=== PATIENT | female | born 1995 | race Hispanic/Latino ===

== ENCOUNTER 2020-04-20 12:44 | Emergency (ER) | payer BC ==
[~2020-04-20] VITALS: Ht 165.1 cm; Wt 97.5 kg
--- NOTE | 2020-04-20 12:52 | NUR ---
ARRIVAL PT ARRIVED TO ED WITH C/O EPIGASTRIC PAIN THAT RADIATES TO BACK X2 DAYS. BEDSIDE MONITORS APPLIED. LAST BM TODAY AND OF NORMAL CONSISTENCY. BED IN LOW LOCKED POSITION. FATHER AT BEDSIDE.
[2020-04-20 13:05] VITALS: BP 157/88
[2020-04-20] MEDS ORDERED: PHENERGAN IV STA (13:24)
[2020-04-20] MEDS ORDERED: PROTONIX IV IV STA (13:24)
[2020-04-20] MEDS ORDERED: TORADOL IV STA (13:24)
--- NOTE | 2020-04-20 13:27 | ER.PDOC ---
General Chief Complaint: Abdomen Pain Stated Complaint: LOWER ABD PAIN Time seen by MD: 13:20 Source: patient, family Exam Limitations: no limitations History of Present Illness Initial Comments Patient c/o epigastric abdominal pain radiating through to her back, onset last night, with n/v. Bowel habits are unchanged/normal. No report of fever. Timing/Duration: 24 hours, constant Severity/Quality: moderate, severe Radiation: epigastric, back Associated Symptoms: nausea/vomiting Exacerbated by: nothing Relieved By: nothing Allergies: Coded Allergies: No Known Allergies (Unverified , 04/20/20) Vital Signs First Vital Signs Date Time Temp Pulse Resp B/P (MAP) Pulse Ox O2 Delivery O2 Flow Rate FiO2 04/20/20 13:05 98.2 76 16 04/20/20 13:05 157/88 (111) 98 Room Air Last Vital Signs Date Time Temp Pulse Resp B/P (MAP) Pulse Ox O2 Delivery O2 Flow Rate FiO2 04/20/20 13:05 98.2 76 16 98 04/20/20 13:05 157/88 (111) Room Air Past Medical History Medical History: no pertinent history Surgical History: no surgical history Family History Significant Family History: no pertinent family hx Social History Smoking: non-smoker Alcohol Use: occassionally Drug Use: none Constitutional: denies no symptoms reported, denies see HPI, denies chills, denies diaphoresis, denies fever, denies malaise, denies weakness, denies other EENTM: denies no symptoms reported, denies see HPI, denies eye pain, denies blurred vision, denies tearing, denies double vision, denies ear pain, denies ear discharge, denies nose pain, denies nose congestion, denies throat pain, denies throat swelling, denies mouth pain, denies mouth swelling, denies other Respiratory: denies no symptoms reported, denies see HPI, denies cough, denies orthopnea, denies shortness of breath, denies SOB with exertion, denies SOB at rest, denies stridor, denies wheezing, denies other Cardiovascular: denies no symptoms reported, denies see HPI, denies chest pain, denies edema, denies irregular heart rate, denies lightheadedness, denies palpitations, denies syncope, denies other Gastrointestinal: see HPI, abdominal pain, nausea, vomiting Genitourinary: denies no symptoms reported, denies see HPI, denies burning, denies dysuria, denies discharge, denies frequency, denies flank pain, denies hematuria, denies incontinence, denies pain, denies urgency, denies other Musculoskeletal: denies no symptoms reported, denies see HPI, denies back pain, denies gout, denies joint pain, denies joint swelling, denies muscle pain, denies muscle stiffness, denies neck pain, denies other Skin: denies no symptoms reported, denies see HPI, denies change in color, denies change in hair/nails, denies dryness, denies lesions, denies lumps, de nies rash, denies other All Other Systems: Reviewed and Negative Physical Exam General Appearance: No Apparent Distress, Obese HEENT: PERRL/EOMI Neck: Non-Tender, Full Range of Motion, Supple, Normal Inspection Respiratory: lungs clear, normal breath sounds, no respiratory distress, no accessory muscle use Cardiovascular: Regular Rate, Rhythm, No Murmur Gastrointestinal: Normal Bowel Sounds, No Pulsatile Mass, Soft, Tenderness (epigastric region without rebound) Extremities: Non-Tender, Normal Inspection, No Pedal Edema, No Calf Tenderness Neurologic/Psychiatric: Alert, Normal Mood/Affect, Oriented x 3 Skin: Normal Color, Warm/Dry Results/Orders Results/Orders Orders - CHERYL KAPLAN DO Cbc With Auto Diff (04/20/20 13:24) Comprehensive Metabolic Panel (04/20/20 13:24) Amylase (04/20/20 13:24) Lipase (04/20/20 13:24) Helicobacter Pylori (04/20/20 13:24) PT (04/20/20 13:24) Ct Abd/Pel With Iv Contrast (04/20/20 13:24) Partial Thromboplastin Time. (04/20/20 13:24) Hcg Qualitative Serum (04/20/20 13:24) Urinalysis (04/20/20 13:24) Saline Lock (04/20/20 13:24) Pantoprazole Sodium (Protonix Iv) (04/20/20 13:24) Promethazine Hcl (Phenergan) (04/20/20 13:24) Ketorolac Tromethamine (Toradol) (04/20/20 13:24) Vital Signs Date Time Temp Pulse Resp B/P (MAP) Pulse Ox O2 Delivery O2 Flow Rate FiO2 04/20/20 13:05 98.2 76 16 98 04/20/20 13:05 98.2 76 16 157/88 (111) 98 Room Air 04/20/20 13:05 98.2 76 16 Administered Medications Medications (Trade) Dose Ordered Sig/Doroteo Route PRN Reason Start Time Stop Time Status Last Admin Dose Admin Ketorolac Tromethamine (Toradol) 30 mg STAT STAT IV 04/20/20 13:24 04/20/20 13:25 UNV 04/20/20 13:41 30 MG Pantoprazole Sodium (Protonix Iv) 40 mg STAT STAT IV 04/20/20 13:24 04/20/20 13:25 UNV 04/20/20 13:41 40 MG Promethazine HCl (Phenergan) 25 mg STAT STAT IV 04/20/20 13:24 04/20/20 13:25 UNV 04/20/20 13:41 25 MG Laboratory Tests Test 04/20/20 13:02 White Blood Count 7.1 10^3/uL (4.5-11.0) Red Blood Count 4.67 10^6/uL (4.00-5.20) Hemoglobin 14.5 g/dL (12.0-15.0) Hematocrit 41.7 % (36.0-46.0) Mean Corpuscular Volume 89.3 fL (78-100) Mean Corpuscular Hemoglobin 31.0 pg (26-34) Mean Corpuscular Hemoglobin Concent 34.8 g/dL (33-36.5) Red Cell Distribution Width 12.3 % (11.5-14.5) Platelet Count 257 10^3/uL (150-400) Mean Platelet Volume 10.4 fL (7.8-11.0) Neutrophils (%) (Auto) 51.9 % (41.0-85.0) Lymphocytes (%) (Auto) 37.2 % (24.0-44.0) Monocytes (%) (Auto) 9.3 % (5.0-12.0) Neutrophils # (Auto) 3.7 10^3/uL (1.8-7.7) Lymphocytes # (Auto) 2.64 10^3/uL1 (1.0-4.8) Monocytes # (Auto) 0.7 10^3/uL (0.3-0.8) Absolute Immature Granulocyte (auto 0.02 10^3 u/L (0-2) Absolute Eosinophils (auto) 0.1 10^3/uL (0.0-0.2) Immature Granulocytes % 0.30 % (0.00-0.50) Eosinophils % 0.7 % (0.0-5.0) Basophils % 0.6 % (0.0-0.2) H Basophils # 0.0 10^3/uL (0.0-0.1) Prothrombin Time 10.3 SEC (9.3-11.3) Prothrombin Time INR (Non-Therap) 1.0 Activated Partial Thromboplast Time 22.7 SEC (24.67-30.72) Urine Collection Type UNKNOWN Urine Color YELLOW (YELLOW) Urine Appearance CLEAR (CLEAR) Urine Bilirubin NEGATIVE MG/DL (NEGATIVE) Urine Ketones NEGATIVE (NEGATIVE) Urine Specific [place] 1.020 (1.005-1.035) Urine pH 7.0 (5.0-6.0) Urine Protein NEGATIVE (NEGATIVE) Urine Urobilinogen NORMAL (NEGATIVE) Urine Nitrate NEGATIVE (NEGATIVE) Urine Leukocyte Esterase NEGATIVE (NEGATIVE) Urine Blood NEGATIVE (NEGATIVE) Urine Glucose NORMAL (NEGATIVE) Sodium Level 139 mmol/L (132-145) Potassium Level 4.2 mmol/L (3.6-5.2) Chloride Level 103.0 mmol/L (96-109) Carbon Dioxide Level 27.1 mmol/L (20.0-32) Anion Gap 13.1 Blood Urea Nitrogen 11 mg/dL (7-18) Creatinine 0.76 mg/dL (0.59-1.40) Estimated GFR () 113.1 (>/=60) Est GFR (CKD-EPI)(Non-Afr [place]) 93.5 (>/=60) BUN/Creatinine Ratio 14.0 Glucose Level 100 mg/dL (70-110) Calcium Level 9.0 mg/dL (8.4-10.5) Total Bilirubin 0.7 mg/dL (0.2-1.0) Aspartate Amino Transferase (AST) 19 U/L (0-35) Alanine Aminotransferase (ALT) 44 U/L (12-78) Alkaline Phosphatase 67 U/L (50-136) Total Protein 7.7 g/dL (6.4-8.2) Albumin 4.1 g/dL (3.4-5.0) Globulin 3.6 Albumin/Globulin Ratio 1.138 Amylase Level 62 U/L (25-115) Lipase 136 U/L (114-286) Serum HCG, Qualitative NEGATIVE (NEGATIVE) Helicobacter pylori Screen NEGATIVE (NEGATIVE) Progress Progress Patient declined CT ER DEPART Departure Time of Disposition: 14:25 Disposition: 01 HOME, SELF-CARE Impression: Primary Impression: Gastritis Additional Impression: Epigastric abdominal pain Condition: Improved Patient Instructions: Abdominal Pain, Gastritis, Adult Referrals: PCP,UNKNOWN (PCP) PRIMARY CARE PROVIDER Additional Instructions: Maintain a strictly bland diet, gradually advancing diet as tolerated. Take [id number] omeprazole 20 mg twice daily for 2 weeks then take efwt-[id number]-[id number] omeprazole 20 mg once daily routinely. Take heas-iuw-girmdzn Pepcid 20 mg twice daily for 2 weeks then take vowd-ipc-[id number] Pepcid 20 mg once daily routinely. Return to the nearest emergency department if your pain escalates or if you are vomiting blood. Follow-up with your primary care physician at the earliest available appointment. Duration or Time Spent with Pa: 45 min Problem Qualifiers Primary Impression: Gastritis Gastritis type: unspecified gastritis Chronicity: acute Gastritis bleeding: without bleeding Qualified Codes: K29.00 - Acute gastritis without bleeding CHERYL KAPLAN DO Apr 20, 2020 13:27
[2020-04-20 13:33] LABS: BASOPHIL % 0.6 % (0.0-0.2); EOSINOPHIL # 0.1 10^3/uL (0.0-0.2); EOSINOPHIL % 0.7 % (0.0-5.0); LYMPHOCYTES # 2.64 10^3/uL1 (1.0-4.8); LYMPHOCYTES % 37.2 % (24.0-44.0); MONOCYTES # 0.7 10^3/uL (0.3-0.8); MONOCYTES % 9.3 % (5.0-12.0); NEUTROPHIL # 3.7 10^3/uL (1.8-7.7); NEUTROPHILS % 51.9 % (41.0-85.0); PLATELET COUNT 257 10^3/uL (150-400); RED CELL DISTRIBUTION WIDTH 12.3 % (11.5-14.5)
[2020-04-20] MEDS ORDERED: TORADOL ONE (13:35)
[2020-04-20] MEDS ORDERED: PHENERGAN ONE (13:35)
[2020-04-20] MEDS ORDERED: PROTONIX IV IV ONE (13:35)
[2020-04-20 13:47] LABS: APPEARANCE,URINE CLEAR (CLEAR); BILIRUBIN,URINE NEGATIVE (NEGATIVE); UA COLOR YELLOW (YELLOW); UROBILINOGEN,URINE NORMAL (NEGATIVE)
[2020-04-20 13:52] LABS: CARBON DIOXIDE 27.1 mmol/L (20.0-32)
--- NOTE | 2020-04-20 14:23 | NUR ---
[facility] CAME TO TRANSPORT PT TO CT. PT REFUSED CT. DR KAPLAN SPOKE WITH PT AND FATHER REGARDING THE RISKS OF REFUSAL WITH UNDERSTANDING VERBALIZED BY PT AND FATHER. CT CANCELLED.
[2020-04-20 14:25] VITALS: BP 160/76
== END 2020-04-20 14:31 | disposition home or self-care (01) ==
LOC: ER 12:44
DX: K29.70 Gastritis, unspecified, without bleeding (principal); Z79.1 Long term (current) use of non-steroidal anti-inflammatories (NSAID); Z79.899 Other long term (current) drug therapy
CPT/HCPCS: 36415; 80053; 81003; 82150; 83690; 84703; 85025; 85610; 85730; 86677; 96374; 96375; 99284; C9113; J1885; J2550